=== PATIENT | male | born 2000 | race Caucasian/White ===

== ENCOUNTER 2023-09-01 20:25 | Emergency (ER) | payer MEDICAID ==
[~2023-09-01] VITALS: Ht 180.3 cm; Wt 104.3 kg
[2023-09-01 21:15] VITALS: BP 113/63; PULSE 77; RESP 16; TEMP 97.1; O2SAT 99
[2023-09-01] MEDS ORDERED: BACITRACIN OINT 500 UNITS/GM PKT TP ONE (22:30)
[2023-09-01] MEDS ORDERED: IBUP-2213 PO (22:30)
[2023-09-01] MEDS ORDERED: CEPH-588 PO (22:30)
[2023-09-01] MEDS ORDERED: BACI-418 TP (22:30)
== END 2023-09-01 22:48 | disposition home or self-care (01) ==
LOC: MED 20:25
DX: S80.811A Abrasion, right lower leg, initial encounter (principal); Z79.1 Long term (current) use of non-steroidal anti-inflammatories (NSAID); Z79.2 Long term (current) use of antibiotics; V86.56XA Driver of dirt bike or motor/cross bike injured in nontraffic accident, initial encounter; Y93.89 Activity, other specified; Y92.89 Other specified places as the place of occurrence of the external cause; Y99.8 Other external cause status
CPT/HCPCS: 90471; 90715; 99283